=== PATIENT | female | born 1985 | race Caucasian/White ===

== ENCOUNTER 2019-12-25 09:02 | Outpatient (CLI) | payer MEDICAID, SELFPAY ==
--- NOTE | 2019-12-25 09:17 | XR_ITS ---
WS: [id number] XR lumbar spine min 4V 28033 REASON FOR EXAM: BACK PAIN FINDINGS: Mild scoliotic curve involving the thoracolumbar region convex to the right. The disc spaces and vertebral bodies are all normal. In the oblique projections there was no evidence of spondylolysis or spondylolisthesis. Comparisons were made to March 28, 2016 with similar findings. Lumbosacral angle was normal. The lamina, pedicles, spinous processes are normal. XR/XR lumbar spine min 4V 38303 IMPRESSION: Scoliotic curve thoracolumbar convex to the right
== END 2019-12-25 09:03 | disposition home or self-care (01) ==
LOC: RAD 09:10
PROVIDERS: Family Provider Physician Assistant; PCP Family Medicine; Visit Provider Family Medicine
DX: M43.8X6 Other specified deforming dorsopathies, lumbar region (principal); M54.5 Low back pain
CPT/HCPCS: 72114

== ENCOUNTER → 2020-03-19 17:52 | Outpatient (BNVA) | payer MEDICAID, SELFPAY | PROVIDERS: Family Provider Physician Assistant; PCP Nurse Practitioner Family; Visit Provider Nurse Practitioner Family | DX: E11.9 Type 2 diabetes mellitus without complications (principal); F33.0 Major depressive disorder, recurrent, mild; Z68.42 Body mass index [BMI] 45.0-49.9, adult; Z76.89 Persons encountering health services in other specified circumstances | CPT/HCPCS: 80053; 82044; 83036; 84439; 84443 ==

== ENCOUNTER → 2020-09-03 14:54 | Outpatient (BNVA) | payer MEDICAID, SELFPAY | PROVIDERS: Family Provider Physician Assistant; PCP Nurse Practitioner Family; Visit Provider Nurse Practitioner Family | DX: Z20.828 Contact with and (suspected) exposure to other viral communicable diseases (principal); J06.9 Acute upper respiratory infection, unspecified | CPT/HCPCS: 87635 ==

== ENCOUNTER 2021-01-30 12:51 | Emergency (ER) | payer MEDICAID, SELFPAY ==
[2021-01-30 13:11] VITALS: BP 165/99; PULSE 95; RESP 20; TEMP 36.7; O2SAT 95; BMI 41.5
--- NOTE | 2021-01-30 13:37 | W.ED.SOB ---
HPI - SOB/Dyspnea General: Chief Complaint: Shortness of Breath/Dyspnea Stated Complaint: sob, wet coughs, nausea, vomiting, has resp/infect Time Seen by Provider: 01/30/21 13:25 Source: patient Mode of arrival: ambulatory Limitations: no limitations History of Present Illness: HPI Narrative: 35-year-old female patient with no prior history of lung disease and who presents to the emergency department with complaints of cough and shortness of breath that has been ongoing for about 2 weeks. She is smokes cigarettes daily although she smokes less than a pack a day according to her. She went to see her primary care provider and he prescribed antibiotic, amoxicillin for her but she says there is no improvement. She is therefore here to be evaluated. MD elicited complaint: shortness of breath and cough Onset (ago): week(s) (2) Timing: constant Severity: moderate Exacerbating factors: nothing Relieving factors: nothing Associated symptoms: Reports cough; Deny abdominal pain, chest congestion, chest pain, diaphoresis, dizziness, extremity pain, fever(s), hemoptysis, lightheadedness, myalgias, nausea, orthopnea, palpitations, paresthesias, polydipsia, polyuria, rash, sense of impending doom, syncope or vomiting Treatment prior to arrival: other (antibiotic) Review of Systems General: Reports: 10 or more systems reviewed and unremarkable except in HPI and below Const: Denies: fever(s) or diaphoresis Card: Denies: chest pain, palpitations, lightheadedness, syncope or orthopnea Resp: Denies: hemoptysis or chest congestion GI: Denies: abdominal pain, nausea or vomiting Musc: Denies: extremity pain Neuro: Denies: dizziness Endo: Denies: polyuria or polydipsia PFS ED PFSH: Medical History Depressed Diabetes Hypertension Surgical History [place] teeth extracted Family History Grandmother Breast cancer Maternal grandmother--dx'd with breast ca in her 80's. Hypertension Maternal grandmother Heart disease Maternal grandmother Family history of thyroid problem Maternal grandmother Mother Diabetes Type 2 Denies family history of Colon cancer Ovarian cancer Uterine cancer Social History Additional social history: - Tobacco use: Former; Quit in 2019 was vaping but switched back to cigarettes Alcohol use: Denies Drug use: Used marijuana as a teenager, last use was over 10 years ago. Denies trying any other drugs or current use. Female Reproductive History: Date of last menstrual period: 01/08/21 Physical Exam Const: COMMON NORMALS: no acute distress, average body habitus, patient oriented x3, no limitations, healthy appearing, alert and well nourished HENMT: COMMON NORMALS: normocephalic, atraumatic and moist oral mucous membranes HEAD & SCALP: normocephalic and atraumatic Neck/C-Spine: COMMON NORMALS: no JVD Resp: COMMON NORMALS: normal respiratory effort, No retractions, No use of accessory muscles and percussion normal EFFORT & INSPECTION: Yes tachypneic AUSCULTATION: wheezes expiratory wheezes and throughout and diminished lung sounds PERCUSSION: percussion normal Cardio: COMMON NORMALS: no JVD, regular rate, regular rhythm, S1 normal heart sound present, S2 normal heart sound present, No gallops present (Cardio), No clicks present (Cardio), No murmurs present (Cardio), No rub (Cardio) and Peripheral pulses 2+ throughout RATE: regular rate RHYTHM: regular rhythm HEART SOUNDS: S1 normal heart sound present and S2 normal heart sound present PERIPHERAL PULSES: Peripheral pulses 2+ throughout GI: COMMON NORMALS: Normal to inspection, nondistended, normoactive bowel sounds present, Soft to palpation, non-tender, No hepatosplenomegaly present, no masses and no bruits PALPATION: Yes Soft to palpation and Yes No hepatosplenomegaly present Extremity: COMMON NORMALS: normal to inspection, full ROM, capillary refill normal, no calf tenderness and no pedal edema Neuro: COMMON NORMALS: patient oriented x3 SENSORIUM/ORIENTATION: Yes alert Skin: COMMON NORMALS: no rashes or lesions noted, no wounds, turgor normal, no jaundice, no petechiae and no mottling GENERAL SKIN EXAM: no rashes or lesions noted and turgor normal Course Reevaluation(s): Reevaluation #1: She feels much better following the breathing treatment. On examination, her lungs are now clear and all wheezing has resolved. Discussed her CBC and CXR with her. She will be discharged home on oral steroids, antibiotic, and an albuterol inhaler. She voiced understanding and is in agreement with the plan. Time: 15:02 Vital Signs: Vital signs: Vital Signs Temperature 98.4 F 01/30/21 15:35 Pulse Rate 95 01/30/21 15:35 Respiratory Rate 18 01/30/21 15:35 Blood Pressure 147/67 01/30/21 15:35 Pulse Oximetry 94 01/30/21 15:35 MDM - SOB/Dyspnea MDM Narrative: Medical decision making narrative: 35-year-old female patient who presents to the emergency department with a 2-week history of cough and shortness of breath. Cough has been productive. On evaluation in the emergency department she has findings concerning for pneumonia on chest x-ray. Examination had expiratory wheezes and reduced air movement consistent with a COPD exacerbation. Symptomatically she felt much better following a beta agonist treatment and she is discharged home with a prescription for antibiotics, corticosteroids, and beta agonist inhaler. She is to follow-up with her primary care provider. She also has hypokalemia and hypocalcemia noted on her labs and both were repleted in the emergency department. She is also given a prescription for oral potassium. Medical Records: Attestation: I reviewed the patient's medical records. Lab Data: Attestation: I reviewed the patient's lab results. Labs: Lab Results 01/30/21 01/30/21 01/30/21 Range/Units 14:20 14:20 15:00 WBC 14.0 H (4.0-10.0) 10^3/ uL RBC 5.13 (4.1-5.3) 10^6/u L Hgb 15.8 H (11.5-15.3) g/dL Hct 46.6 (37.0-47.0) % MCV 90.8 (81-99) fL MCH 30.8 (28.0-34.0) pg MCHC 33.9 (30.0-36.0) g/dL RDW 12.4 (12.1-15.1) % Plt Count 235 (130-400) 10^3/c mm MPV 12.4 H (7.4-10.4) fL Neut % (Auto) 52.8 % Lymph % (Auto) 36.6 % [place] % (Auto) 6.4 % Eos % (Auto) 2.8 % Baso % (Auto) 0.9 % Neut # (Auto) 7.37 (1.8-7.7) 10^3/u L Lymph # (Auto) 5.1 H (0.8-4.8) 10^3/u L [place] # (Auto) 0.9 (0.2-0.9) 10^3/u L Eos # (Auto) 0.4 (0.0-0.8) 10^3/u L Baso # (Auto) 0.1 (0.0-0.1) 10^3/u L Nucleated RBC % (a uto) 0 % Nucleated RBCs # 0.0 /100WBC Sodium Cancelled 139 Potassium Cancelled 2.8 L* Chloride Cancelled 111 H Carbon Dioxide Cancelled 20 L Anion Gap Cancelled 10.8 BUN Cancelled 7 Creatinine Cancelled 0.3 L GFR Calculation Cancelled 251.7 H Glucose Cancelled 222 H Calculated Osmolal ity Cancelled 293 Calcium Cancelled 6.1 L Total Bilirubin Cancelled 0.4 AST Cancelled 18 ALT Cancelled 29 Alkaline Phosphata se Cancelled 62 C-Reactive Protein 5.6 H (0.0-4.9) mg/L Total Protein Cancelled 5.3 L Albumin Cancelled 3.0 L Globulin Cancelled 2.3 Imaging Data^: CXR: Attestation: I personally reviewed and interpreted this imaging study as follows: Radiologist's impression: [address] [address] XRay Report Signed Patient: Gurjit Noriega #: [id number] : 1985Acct#:[id number] Age/Sex: 35 / FADM Date: 01/30/21 Loc: ERRoom/Bed: Attending Dr: Ordering Provider/Ordering MD: Jose Luis Verdugo MD, [facility] [place] Date of Service: 01/30/21 Procedure(s): XR chest 2V* 95185 Accession Number(s): [id number] Report Number: [id number] PROCEDURE INFORMATION: Exam: XR Chest Exam date and time: 01/30/2021 1:36 PM Age: 35 years old Clinical indication: Shortness of breath; Additional info: SOB TECHNIQUE: Imaging protocol: XR of the chest. Views: 2 views. COMPARISON: No relevant prior studies available. FINDINGS: Lungs: Hypoinflation and mild interstitial prominence. Pleural spaces: No pleural effusion. Heart/Mediastinum: No cardiomegaly. Bones/joints: Marginal osteophytes. XR/XR chest 2V* 55142 IMPRESSION: Hypoinflation and mild interstitial prominence. Dictated By:Lokesh Mary MD Signed By:Lokesh Mary MDSigned Date/Time:01/30/211506 DD/ 05 Discharge Plan Discharge Patient Disposition: Home Clinical Impression: Acute hypokalemia, Hypocalcemia Community acquired pneumonia Qualifiers: Laterality: right Lung location: unspecified part of lung Qualified Code(s): J18.9 - Pneumonia, unspecified organism Asthma exacerbation Qualifiers: Asthma severity: unspecified severity Asthma persistence: intermittent Qualified Code(s): J45.21 - Mild intermittent asthma with (acute) exacerbation Condition: Stable Prescriptions: New prednisone 20 mg tablet 60 mg PO DAILY Qty: 15 RF: 0 doxycycline hyclate 100 mg tablet 100 mg PO BID 7 Days Qty: 14 RF: 0 albuterol sulfate 90 mcg/actuation HFA aerosol inhaler 4 inh inhalation Q4H PRN (Reason: shortness of breath or wheezing) Qty: 8.5 RF: 0 potassium chloride 20 mEq tablet extended release 40 meq PO DAILY 3 Days Qty: 6 RF: 0 Continued glipizide 10 mg tablet 10 mg PO DAILY@2099 RF: 0 pioglitazone 30 mg tablet 30 mg PO DAILY@2099 RF: 0 1 tab PO DAILY@2099 RF: 0 Vitamin C 1 mg PO DAILY@2099 RF: 0 Women's One Daily 1 tab PO DAILY@2099 RF: 0 Discharge Orders: Discharge ED (Routine); Ordered 01/30/21 Ordered By: Jose Luis Verdugo Referrals: Fina Allred, [employer] [Primary Care Provider] - 1-3 days Discharge Diet: Usual diet Discharge Activity: Increase activity as tolerated Patient Instructions: Hypokalemia (ED), Community-acquired Pneumonia (ED), Hypocalcemia (ED) Activity Restrictions/Additional Instructions: Return for any new or worsening symptoms. Follow-up with your primary care provider within 3 days. Take the medications as prescribed. Use the inhaler every 4 hours for the next 2 days while you are awake and then as needed thereafter. And show your primary care provider rechecks your potassium and your calcium within the next 3 days. It is important to avoid smoking as this may worsen your symptoms. Coding Level of Care Code ED Transplant Rn for Chg Fwd Exam Comprehensive
[2021-01-30] MEDS: ipratropium-albuterol 3 mL Neb INHALATION (13:52)
[2021-01-30 13:53] VITALS: PULSE 101; RESP 16; O2SAT 99
[2021-01-30 13:57] VITALS: PULSE 102
[2021-01-30 14:07] VITALS: BP 179/91; PULSE 106; RESP 16; O2SAT 94
[2021-01-30 14:29] LABS: Basophils # 0.1 10^3/uL (0.0-0.1); Basophils % 0.9 %; Eosinophils # 0.4 10^3/uL (0.0-0.8); Eosinophils % 2.8 %; Hematocrit 46.6 % (37.0-47.0); Hemoglobin 15.8 g/dL (11.5-15.3); Lymphocytes # 5.1 10^3/uL (0.8-4.8); Lymphocytes % 36.6 %; Mean Corpuscular HGB Conc 33.9 g/dL (30.0-36.0); Mean Corpuscular Hemoglobin 30.8 pg (28.0-34.0); Mean Corpuscular Volume 90.8 fL (81-99); Mean Platelet Volume 12.4 fL (7.4-10.4); Monocytes # 0.9 10^3/uL (0.2-0.9); Monocytes % 6.4 %; Neutrophils # 7.37 10^3/uL (1.8-7.7); Neutrophils % 52.8 %; Nucleated Red Blood Cells % 0 %; Platelet Count 235 10^3/cmm (130-400); Red Blood Count 5.13 10^6/uL (4.1-5.3); Red Cell Distribution Width 12.4 % (12.1-15.1)
[2021-01-30] MEDS: cefTRIAXone 2,000 MG in sodium chloride 0.9% (plus) 50 ML 100 MG IV (15:07)
[2021-01-30 15:32] LABS: Alanine Aminotransferase 29 U/L (0-33); Alkaline Phosphatase 62 IU/L (35-105); Anion Gap 10.8 (5-19); Aspartate Amino Transferase 18 U/L (0-32); Blood Urea Nitrogen 7 mg/dL (6-20); C Reactive Protein 5.6 mg/L (0.0-4.9); Calcium 6.1 mg/dL (8.5-10.5); Carbon Dioxide 20 mmol/L (22-29); Chloride 111 mmol/L (98-107); Globulin 2.3 g/dL (1.3-4.6); Glomerular Filtration Rate 251.7 mL/min (90-130); Glucose 222 mg/dL (65-115); Osmolality Calculated 293 mOsm/kg (285-295); Sodium 139 mmol/L (136-145); Total Bilirubin 0.4 mg/dL (0.15-1.2); Total Protein 5.3 g/dL (6.6-8.7)
[2021-01-30 15:34] LABS: Potassium 2.8 mmol/L (3.5-5.1)
[2021-01-30 15:35] VITALS: BP 147/67; PULSE 95; RESP 18; TEMP 36.9; O2SAT 94
[2021-01-30] MEDS: calcium gluconate 0.1 gm/mL 10% SDV 10mL 1 GM IVP (15:45)
[2021-01-30] MEDS: potassium chloride ER 20 mEq Tablet 40 MEQ PO (15:45)
== END 2021-01-30 15:55 | disposition home or self-care (01) ==
PROVIDERS: Emergency Provider Family Medicine; PCP Nurse Practitioner Family
DX: J18.9 Pneumonia, unspecified organism (principal); J45.21 Mild intermittent asthma with (acute) exacerbation; E87.6 Hypokalemia; E83.51 Hypocalcemia; Z79.84 Long term (current) use of oral hypoglycemic drugs; I10 Essential (primary) hypertension; E11.9 Type 2 diabetes mellitus without complications; F17.210 Nicotine dependence, cigarettes, uncomplicated
CPT/HCPCS: 71046; 80053; 85025; 86140; 94640; 96365; 96375; 99284; J0610; J0696; J2930

== ENCOUNTER → 2021-05-14 08:09 | Outpatient (BNVA) | payer MEDICAID, SELFPAY | PROVIDERS: PCP Nurse Practitioner Family; Visit Provider Nurse Practitioner Family | DX: L02.91 Cutaneous abscess, unspecified (principal) | CPT/HCPCS: 87070 ==

== ENCOUNTER → 2021-06-23 11:01 | Outpatient (BNVA) | payer MEDICAID, SELFPAY | PROVIDERS: PCP Nurse Practitioner Family; Visit Provider Nurse Practitioner Family | DX: E11.9 Type 2 diabetes mellitus without complications (principal); R05 Cough; R50.9 Fever, unspecified | CPT/HCPCS: 83036; 87635 ==

== ENCOUNTER → 2021-09-24 09:43 | Outpatient (BNVA) | payer MEDICAID, SELFPAY | PROVIDERS: PCP Nurse Practitioner Family; Visit Provider Nurse Practitioner Family | DX: E11.9 Type 2 diabetes mellitus without complications (principal) | CPT/HCPCS: 80053; 80061; 82043; 83036 ==

== ENCOUNTER 2021-09-28 01:09 | Emergency (ER) | payer MEDICAID, SELFPAY ==
[2021-09-28 01:14] VITALS: BP 162/92; PULSE 100; RESP 18; TEMP 36.1; O2SAT 99; BMI 42.3
--- NOTE | 2021-09-28 01:25 | ECG_ITS ---
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
--- NOTE | 2021-09-28 01:25 | ED_ITS ---
HPI - Abdominal Pain General: Chief Complaint: Abdominal Pain Stated Complaint: Heart burn and gas reflux Time Seen by Provider: 09/28/21 01:25 History of Present Illness: HPI narrative: 36-year-old female comes in today with complaints of epigastric abdominal pain radiating up into her chest and then to her back. Patient reports that she has had similar symptoms before but not as severe as tonight's. Patient reports that ever since she has had her child she has had similar symptoms just not as severe. Patient appears well. Patient appears in mild to moderate pain. Patient denies any vomiting or diarrhea. Patient denies any shortness of breath or other systemic symptoms. Patient still has her gallbladder and has had no previous abdominal surgeries, patient does have type 2 diabetes, and hypertension. MD elicited complaint: abdominal pain Related Data: Date of Last Menstrual Period: 01/08/21 Review of Systems General: Reports: 10 or more systems reviewed and unremarkable except in HPI and below GI: Reports: abdominal pain PFS ED PFSH: Medical History Diabetes Diagnosed in 2016 and she states that her last hemoglobin A1c was 9.7 in May 2021. This is managed by her primary care provider. She does not have an gin feeder. No pertinent past medical history Denies asthma, hypertension, seizures, DVT/PE PCP: EM Brand Surgical History [place] teeth extracted Family History Grandmother Breast cancer Maternal grandmother--dx'd with breast ca in her 80's. Hypertension Maternal grandmother Heart disease Maternal grandmother Family history of thyroid problem Maternal grandmother Mother Diabetes Type 2 Denies family history of Colon cancer Ovarian cancer Uterine cancer Female Reproductive History: Date of last menstrual period: 01/08/21 Physical Exam Const: COMMON NORMALS: no acute distress and patient oriented x3 GENERAL APPEARANCE: cooperative HENMT: COMMON NORMALS: normocephalic, TM's normal bilaterally and Normal external nose present HEAD & SCALP: normal to inspection and normocephalic NOSE: Normal external nose present TYMPANIC MEMBRANE: TM's normal bilaterally MOUTH: Normal oral and palatal mucosa present THROAT: posterior oropharynx normal Eye: GENERAL EYE: appearance normal, both eyes and all related structures Neck/C-Spine: COMMON NORMALS: full ROM Lymph: LYMPHATIC: no lymphadenopathy noted Chest: COMMONS NORMALS: normal inspection of the chest Resp: COMMON NORMALS: normal respiratory effort EFFORT & INSPECTION: Yes able to speak in complete sentences Cardio: COMMON NORMALS: regular rate and regular rhythm RATE: regular rate RHYTHM: regular rhythm GI: COMMON NORMALS: Soft to palpation PALPATION: Yes Soft to palpation, Yes Tenderness to palpation present (GI) Details: RUQ (Deep palpation), No Guarding due to palpation present (GI) and No Rebound tenderness present : COMMON NORMALS: Yes no CVA tenderness BLADDER/KIDNEY EXAM: Yes no CVA tenderness Back/Pelvis: COMMON NORMALS: no CVA tenderness and thoracic and lumbar spine normal to inspection Extremity: COMMON NORMALS: normal to inspection Neuro: COMMON NORMALS: patient oriented x3 and moves all extremities Psych: COMMON NORMALS: mental status grossly normal and cooperative Skin: COMMON NORMALS: no rashes or lesions noted GENERAL SKIN EXAM: no rashes or lesions noted Course ED course: , patient's pain has improved considerably. Patient denies any pain at this time. Patient was given a dose of Mylanta, lidocaine, and Carafate and cocktail form. I reviewed this with patient with recommendations for follow-up with primary care. I talked with Dr. Purvis will monitor for labs and discussed with patient when they have completed. Vital Signs: Vital signs: Vital Signs Temperature 96.9 F L 09/28/21 01:14 Pulse Rate 86 09/28/21 04:09 Respiratory Rate 18 09/28/21 04:09 Blood Pressure 142/90 09/28/21 04:09 Pulse Oximetry 98 09/28/21 04:09 MDM - Abdominal Pain MDM Narrative: Medical decision making narrative: Patient comes in today with worsening abdominal pain. Patient reports that she has had pain on and off in her abdomen with some radiation into her chest ever since her child's delivery. Patient reports that the pain was really severe tonight which prompted her to come to the ER. On exam patient appears well with mild to moderate discomfort. Abdomen was soft with some epigastric tenderness. No CVA tenderness. Vital signs were normal. Differential diagnosis includes but not limited to gallbladder disease, GERD, gastritis, pancreatitis. Lab Data: Labs: Lab Results 09/28/21 09/28/21 09/28/21 02:00 02:00 02:00 Sodium 138 mmol/L mmol/L (136-145) Potassium 4.1 mmol/L mmol/L (3.5-5.1) Chloride 99 mmol/L mmol/L (98-107) Carbon Dioxide 22 mmol/L mmol/L (22-29) Anion Gap 21.1 H (5-19) BUN 11 mg/dL mg/dL (6-20) Creatinine 0.5 mg/dL mg/dL (0.5-0.9) GFR Calculation 138.8 mL/min H mL /min (90-130) Glucose 166 mg/dL H mg/dL (65-115) Calculated Osmolal ity 289 mOsm/kg mOsm/ kg (285-295) Calcium 9.4 mg/dL mg/dL (8.5-10.5) Total Bilirubin 0.3 mg/dL mg/dL (0.15-1.2) AST 22 U/L U/L (0-32) ALT 31 U/L U/L (0-33) Alkaline Phosphata se 83 IU/L IU/L (35-105) Troponin T Gen 5 n g/L 6 ng/L ng/L (0-10) Total Protein 7.1 g/dL g/dL (6.6-8.7) Albumin 4.4 g/dL g/dL (3.5-5.2) Globulin 2.7 g/dL g/dL (1.3-4.6) Lipase 25 U/L U/L (13-60) HCG, Qual Negative (Negative) Urine Color Urine Appearance Urine pH Ur Specific Gravit y Urine Protein Urine Glucose (UA) Urine Ketones Urine Blood Urine Nitrate Urine Bilirubin Urine Urobilinogen Ur Leukocyte Marcela ase Urine RBC Urine WBC Ur Squamous Epith Cells Amorphous Sediment Urine Bacteria 09/28/21 02:10 Sodium Potassium Chloride Carbon Dioxide Anion Gap BUN Creatinine GFR Calculation Glucose Calculated Osmolal ity Calcium Total Bilirubin AST ALT Alkaline Phosphata se Troponin T Gen 5 n g/L Total Protein Albumin Globulin Lipase HCG, Qual Urine Color Yellow (Yellow) Urine Appearance Clear (CLEAR) Urine pH 6 (5-7) Ur Specific Gravit y 1.020 (1.005-1.030) Urine Protein Neg (Negative) Urine Glucose (UA) Norm (Normal) Urine Ketones Negative (Negative) Urine Blood Trace H (Negative) Urine Nitrate Negative (Negative) Urine Bilirubin Neg (Negative) Urine Urobilinogen Neg mg/dL mg/dL (Negative) Ur Leukocyte Marcela ase Trace H (Negative) Urine RBC Rare /hpf /hpf (0-2) Urine WBC 0-4 /hpf H /hpf (0-5) Ur Squamous Epith Cells 15-25 /hpf H /hpf (0-5) Amorphous Sediment Not Reportable Urine Bacteria 1+ /hpf H /hpf (NONE) EKG Data ^: EKG 1: Attestation: I personally reviewed and interpreted this EKG as follows: (, EKG shows normal sinus rhythm with a regular rate at [address] elevation or ectopy is noted. Mild artifact is noted on the EKG. No prior exam is available for comparison.) Discharge Plan Discharge Patient Disposition: Home Clinical Impression: Abdominal pain Qualifiers: Abdominal location: epigastric Qualified Code(s): R10.13 - Epigastric pain Condition: Stable Prescriptions: New pantoprazole 40 mg tablet,delayed release (DR/EC) 40 mg PO DAILY 28 Days Qty: 28 RF: 0 No Action metformin 500 mg tablet 500 mg PO BID Qty: 60 RF: 0 lisinopril 10 mg tablet 10 mg PO DAILY Qty: 30 RF: 0 pioglitazone [Actos] 45 mg tablet 45 mg PO DAILY Qty: 90 RF: 0 glipizide 10 mg tablet See Rx Instructions .ROUTE .COMPLEX Qty: 60 RF: 0 1 tab PO DAILY@2100 RF: 0 Vitamin C 1 mg PO DAILY@2100 RF: 0 Discharge Orders: Discharge ED (Routine); Ordered 09/28/21 Ordered By: Mariama Purvis Referrals: Fina Allred NP [Primary Care Provider] - 1-3 days Discharge Diet: Usual diet Discharge Activity: Increase activity as tolerated Patient Instructions: Abdominal Pain (ED) Activity Restrictions/Additional Instructions: Home and rest. Drink plenty of fluids. Take pantoprazole 40 mg, 1 tablet 30 minutes before your first meal of the day. The medication works better if you take it 30 minutes before you eat. Follow-up with primary care in 1 week. She may want you to have further evaluation with a gallbladder ultrasound. Return to the emergency department for fever greater than 100.4, worsening abdominal pain, blood in vomit or stool. Coding Level of Care Code ED National Account Director for Chg Fwd Exam Comprehensive
[2021-09-28] MEDS: HYDROcodone-acetaminophen 5-325 mg Tablet 1 TAB PO (01:41)
[2021-09-28 02:32] LABS: Hematocrit 46.7 % (37.0-47.0); Hemoglobin 15.4 g/dL (11.5-15.3); Mean Corpuscular Hemoglobin 30.6 pg (28.0-34.0); Mean Corpuscular Volume 92.8 fl (81-99); Platelet Count 177 10^3/cmm (130-400); Red Blood Count 5.03 10^6/uL (4.1-5.3); Red Cell Distribution Width 12.5 % (12.1-15.1); White Blood Count 13.9 10^3/uL (4.0-10.0)
[2021-09-28 02:51] LABS: HCG, Serum Qual Negative (Negative)
[2021-09-28 02:59] LABS: Alanine Aminotransferase 31 U/L (0-33); Albumin Level 4.4 g/dL (3.5-5.2); Alkaline Phosphatase 83 IU/L (35-105); Aspartate Amino Transferase 22 U/L (0-32); Blood Urea Nitrogen 11 mg/dL (6-20); Calcium 9.4 mg/dL (8.5-10.5); Carbon Dioxide 22 mmol/L (22-29); Chloride 99 mmol/L (98-107); Globulin 2.7 g/dL (1.3-4.6); Glomerular Filtration Rate 138.8 mL/min (90-130); Glucose 166 mg/dL (65-115); Lipase 25 U/L (13-60); Osmolality Calculated 289 mOsm/kg (285-295); Sodium 138 mmol/L (136-145); Total Bilirubin 0.3 mg/dL (0.15-1.2); Total Protein 7.1 g/dL (6.6-8.7)
[2021-09-28 03:05] LABS: Add Urine Microscopic? YES; Bilirubin Urine Neg (Negative); Blood Urine Trace (Negative); Glucose Urine UA Norm (Normal); Ketones Urine Negative (Negative); Leukocyte Esterase Urine Trace (Negative); Nitrate Urine Negative (Negative); Protein Urine Neg (Negative); Urine Appearance Clear (CLEAR); Urine Color Yellow (Yellow); Urobilinogen Urine Neg (Negative); pH Urine 6 (5-7)
[2021-09-28 03:07] LABS: Add Urine Culture? No; Bacteria Urine 1+ /hpf; RBC Urine RARE /hpf (0-2); Squamous Epithelial Cell Urine 15-25 /hpf (0-5); WBC Urine 0-4 /hpf (0-5)
[2021-09-28 03:11] LABS: Anion Gap 21.1 (5-19); Potassium 4.1 mmol/L (3.5-5.1)
[2021-09-28 03:22] LABS: Troponin T (5th) Once 6 ng/L (0-10)
[2021-09-28 03:31] LABS: Slide Review Slide Review Perform; Total Cells Counted 100 (0-100)
[2021-09-28 03:32] LABS: Absolute Eosinophils 0.6 10^3/cmm (0.0-0.7); Absolute Neutrophil 8.5 10^3/cmm (1.4-6.5); Absolute Segmented Neutrophil 8.2 10/cmm (1.6-7.1); Band Neutrophils Absolute 0.3 10^3/cmm (0.0-1.2); Eosinophils 5 %; Lymphocytes 22 %; Lymphocytes Absolute 4.4 10^3/cmm (1.2-3.4); Platelet Estimate Normal (Normal); Segmented Neutrophils 59 %
[2021-09-28 04:09] VITALS: BP 142/90; PULSE 86; RESP 18; O2SAT 98
== END 2021-09-28 04:10 | disposition home or self-care (01) ==
PROVIDERS: Emergency Provider Nurse Practitioner Family; PCP Nurse Practitioner Family
DX: R10.13 Epigastric pain (principal); Z79.84 Long term (current) use of oral hypoglycemic drugs; E11.9 Type 2 diabetes mellitus without complications
CPT/HCPCS: 80053; 81001; 83690; 84484; 84703; 85007; 85025; 93005; 99283

== ENCOUNTER → 2021-12-21 10:58 | Outpatient (BNVA) | payer MEDICAID, SELFPAY | PROVIDERS: PCP Nurse Practitioner Family; Visit Provider Nurse Practitioner Family | DX: E11.9 Type 2 diabetes mellitus without complications (principal) | CPT/HCPCS: 83036 ==

== ENCOUNTER → 2022-01-07 10:53 | Outpatient (BNVA) | payer MEDICAID, SELFPAY | PROVIDERS: PCP Nurse Practitioner Family; Visit Provider Nurse Practitioner Family | DX: N92.6 Irregular menstruation, unspecified (principal) | CPT/HCPCS: 81025; 84702 ==

== ENCOUNTER → 2022-07-07 09:54 | Outpatient (BNVA) | payer MEDICAID, SELFPAY | PROVIDERS: PCP Nurse Practitioner Family; Visit Provider Nurse Practitioner Family | DX: I10 Essential (primary) hypertension (principal); E11.9 Type 2 diabetes mellitus without complications; Z68.41 Body mass index [BMI] 40.0-44.9, adult | CPT/HCPCS: 80053; 80061; 82043; 83036 ==

== ENCOUNTER → 2022-10-04 09:36 | Outpatient (BNVA) | payer MEDICAID, SELFPAY | PROVIDERS: PCP Nurse Practitioner Family; Visit Provider Nurse Practitioner Family | DX: E11.9 Type 2 diabetes mellitus without complications (principal) | CPT/HCPCS: 83036 ==

== ENCOUNTER → 2023-01-02 10:52 | Outpatient (BNVA) | payer MEDICAID, SELFPAY | PROVIDERS: PCP Nurse Practitioner Family; Visit Provider Nurse Practitioner Family | DX: R07.0 Pain in throat (principal); E11.9 Type 2 diabetes mellitus without complications; J02.9 Acute pharyngitis, unspecified | CPT/HCPCS: 83036; 87071; 87880 ==

== ENCOUNTER → 2023-04-04 13:36 | Outpatient (BNVA) | payer MEDICAID, SELFPAY | PROVIDERS: PCP Nurse Practitioner Family; Visit Provider Nurse Practitioner Family | DX: E11.9 Type 2 diabetes mellitus without complications (principal); L60.2 Onychogryphosis; B35.1 Tinea unguium; F41.9 Anxiety disorder, unspecified; F32.A Depression, unspecified; B37.9 Candidiasis, unspecified | CPT/HCPCS: 83036 ==

== ENCOUNTER → 2023-05-16 11:42 | Outpatient (BNVA) | payer MEDICAID, SELFPAY | PROVIDERS: PCP Nurse Practitioner Family; Visit Provider Nurse Practitioner Family | DX: R30.0 Dysuria (principal) | CPT/HCPCS: 81003 ==

== ENCOUNTER → 2023-06-12 11:14 | Outpatient (BNVA) | payer MEDICAID, SELFPAY | PROVIDERS: PCP Nurse Practitioner Family; Visit Provider Podiatrist Foot & Ankle Surgery | DX: B35.1 Tinea unguium (principal); E11.9 Type 2 diabetes mellitus without complications; G62.9 Polyneuropathy, unspecified; L84 Corns and callosities | CPT/HCPCS: 11055; 11721; 99204 ==

== ENCOUNTER → 2023-07-04 09:38 | Outpatient (BNVA) | payer MEDICAID, SELFPAY | PROVIDERS: PCP Nurse Practitioner Family; Visit Provider Podiatrist Foot & Ankle Surgery | DX: L84 Corns and callosities (principal); B35.1 Tinea unguium; E11.9 Type 2 diabetes mellitus without complications; G62.9 Polyneuropathy, unspecified; E11.42 Type 2 diabetes mellitus with diabetic polyneuropathy; E11.621 Type 2 diabetes mellitus with foot ulcer; L97.501 Non-pressure chronic ulcer of other part of unspecified foot limited to breakdown of skin | CPT/HCPCS: 99213 ==

== ENCOUNTER → 2023-07-18 11:44 | Outpatient (BNVA) | payer MEDICAID, SELFPAY | PROVIDERS: PCP Nurse Practitioner Family; Visit Provider Nurse Practitioner Family | DX: E11.9 Type 2 diabetes mellitus without complications (principal) | CPT/HCPCS: 83036 ==

== ENCOUNTER → 2023-07-25 14:54 | Outpatient (BNVA) | payer MEDICAID, SELFPAY | PROVIDERS: PCP Nurse Practitioner Family; Visit Provider Nurse Practitioner Family | DX: I10 Essential (primary) hypertension (principal) | CPT/HCPCS: 80053; 80061; 84443; 85025 ==

== ENCOUNTER → 2023-11-22 10:15 | Outpatient (BNVA) | payer MEDICAID, SELFPAY | PROVIDERS: PCP Nurse Practitioner Family; Visit Provider Nurse Practitioner Women's Health | DX: Z01.419 Encounter for gynecological examination (general) (routine) without abnormal findings (principal); Z31.9 Encounter for procreative management, unspecified | CPT/HCPCS: 87624 ==

== ENCOUNTER → 2023-11-23 09:27 | Outpatient (BNVA) | payer MEDICAID, SELFPAY | PROVIDERS: PCP Nurse Practitioner Family; Visit Provider Nurse Practitioner Family | DX: E11.9 Type 2 diabetes mellitus without complications (principal) | CPT/HCPCS: 83036 ==

== ENCOUNTER → 2024-02-19 10:03 | Outpatient (BNVA) | payer MEDICAID, SELFPAY | PROVIDERS: PCP Nurse Practitioner Family; Visit Provider Nurse Practitioner Family | DX: R53.83 Other fatigue (principal); R68.82 Decreased libido; I10 Essential (primary) hypertension; E11.9 Type 2 diabetes mellitus without complications; L02.412 Cutaneous abscess of left axilla | CPT/HCPCS: 80053; 80061; 82306; 82672; 83036; 84402; 84403; 85025; 87070; 87077; 87184 ==

== ENCOUNTER → 2024-03-06 14:52 | Outpatient (BNVA) | payer MEDICAID, SELFPAY | PROVIDERS: PCP Nurse Practitioner Family; Visit Provider Nurse Practitioner Family | DX: J39.2 Other diseases of pharynx (principal) | CPT/HCPCS: 87880 ==

== ENCOUNTER → 2024-04-05 09:03 | Outpatient (BNVA) | payer MEDICAID, SELFPAY | PROVIDERS: PCP Nurse Practitioner Family; Visit Provider Podiatrist Foot & Ankle Surgery | DX: B35.1 Tinea unguium (principal); G62.9 Polyneuropathy, unspecified; E11.42 Type 2 diabetes mellitus with diabetic polyneuropathy | CPT/HCPCS: 99213 ==

== ENCOUNTER → 2024-04-16 11:47 | Outpatient (BNVA) | payer MEDICAID, SELFPAY | PROVIDERS: PCP Nurse Practitioner Family; Visit Provider Family Medicine | DX: R30.9 Painful micturition, unspecified (principal); E11.9 Type 2 diabetes mellitus without complications; N39.0 Urinary tract infection, site not specified | CPT/HCPCS: 81000 ==

== ENCOUNTER → 2024-04-23 13:55 | Outpatient (BNVA) | payer MEDICAID, SELFPAY | PROVIDERS: PCP Nurse Practitioner Family; Visit Provider Nurse Practitioner Family | DX: R30.9 Painful micturition, unspecified (principal); B37.31 Acute candidiasis of vulva and vagina | CPT/HCPCS: 81000 ==

== ENCOUNTER → 2024-09-13 09:41 | Outpatient (BNVA) | payer MEDICAID, SELFPAY | PROVIDERS: PCP Nurse Practitioner Family; Visit Provider Nurse Practitioner Family | DX: E11.9 Type 2 diabetes mellitus without complications (principal); I10 Essential (primary) hypertension | CPT/HCPCS: 80053; 80061; 82043; 83036 ==

== ENCOUNTER → 2024-10-22 10:34 | Outpatient (BNVA) | payer MEDICAID, SELFPAY | PROVIDERS: PCP Nurse Practitioner Family; Visit Provider Nurse Practitioner Family | DX: R50.9 Fever, unspecified (principal) | CPT/HCPCS: 87400; 87426 ==

== ENCOUNTER → 2025-06-09 12:54 | Outpatient (BNVA) | payer MEDICAID, SELFPAY | PROVIDERS: PCP Nurse Practitioner; Visit Provider Nurse Practitioner | DX: R10.13 Epigastric pain (principal); M51.369 Other intervertebral disc degeneration, lumbar region without mention of lumbar back pain or lower extremity pain | CPT/HCPCS: 74018 ==